=== PATIENT | male | born 1960 | race Caucasian/White ===

== ENCOUNTER 2020-12-26 07:25 | Day surgery (SDC) | payer OTHER, SELFPAY ==
[~2020-12-26] VITALS: Ht 160 cm; Wt 59.0 kg
[~2020-12-26 07:25] MED LIST: BUPR300T70 PO; CLON1TAB1 PO; LURA40TA PO; METH-1550 PO; QUET100T PO; SILD100T PO; TEMA30CA12 PO
== END 2020-12-26 10:10 | disposition home or self-care (01) ==
LOC: MDS 07:25 → MMU 07:25 → MDS 10:10
PROVIDERS: ATTEND Internal Medicine Gastroenterology
DX: K22.2 Esophageal obstruction (principal); K44.9 Diaphragmatic hernia without obstruction or gangrene; K21.00 Gastro-esophageal reflux disease with esophagitis, without bleeding; B18.2 Chronic viral hepatitis C; I10 Essential (primary) hypertension; E78.5 Hyperlipidemia, unspecified; F17.210 Nicotine dependence, cigarettes, uncomplicated; Z79.82 Long term (current) use of aspirin; Z79.899 Other long term (current) drug therapy; Z20.822 Contact with and (suspected) exposure to COVID-19
CPT/HCPCS: 43248; 87426; U0003

== ENCOUNTER 2022-09-10 08:16 | Day surgery (SDC) | payer OTHER ==
[~2022-09-10] VITALS: Ht 165.1 cm; Wt 59.9 kg
[~2022-09-10 08:16] MED LIST changes: -LURA40TA PO; +LURA40TA1 PO
[2022-09-10] MEDS ORDERED: fentaNYL citrate 0.05 MG/ML VIAL ONE (10:14)
[2022-09-10] MEDS ORDERED: MIDAZOLAM 5 MG/5 ML VIAL ONE (10:15)
== END 2022-09-10 10:55 | disposition home or self-care (01) ==
LOC: MDS 08:16 → MMU 08:18 → MDS 10:55
PROVIDERS: ATTEND Internal Medicine Gastroenterology
DX: K22.70 Barrett's esophagus without dysplasia (principal); K44.9 Diaphragmatic hernia without obstruction or gangrene; K21.9 Gastro-esophageal reflux disease without esophagitis; J44.9 Chronic obstructive pulmonary disease, unspecified; E78.5 Hyperlipidemia, unspecified; F17.210 Nicotine dependence, cigarettes, uncomplicated; Z95.0 Presence of cardiac pacemaker; Z90.49 Acquired absence of other specified parts of digestive tract; Z79.82 Long term (current) use of aspirin; Z79.899 Other long term (current) drug therapy
CPT/HCPCS: 88305; 88313; J2250; J3010